=== PATIENT | female | born 1945 | race Two or more races ===

== ENCOUNTER 2020-08-25 10:57 | Outpatient (CLI) | payer OTHER | END 2020-08-25 11:24 | disposition home or self-care (01) | LOC: RAD 10:57 → MRI 11:15 → RAD 11:24 | PROVIDERS: ATTEND Orthopaedic Surgery | DX: M25.561 Pain in right knee (principal); M25.562 Pain in left knee; M25.551 Pain in right hip; M25.552 Pain in left hip; M19.09 Primary osteoarthritis, other specified site | CPT/HCPCS: 73718; 73721 ==

== ENCOUNTER 2020-09-27 11:40 | Emergency (ER) | payer OTHER ==
[~2020-09-27] VITALS: Ht 167.6 cm; Wt 57.6 kg
[2020-09-27] MEDS ORDERED: ALTACE5 MG (11:54)
== END 2020-09-27 13:57 | disposition home or self-care (01) ==
LOC: ER 11:40
DX: M25.561 Pain in right knee (principal)

== ENCOUNTER 2020-11-01 06:55 | Inpatient (IN) | payer OTHER ==
[~2020-11-01] VITALS: Ht 165.1 cm; Wt 54.4 kg
[~2020-11-01 06:55] MED LIST: ALTACE5 MG
[2020-11-01] MEDS ORDERED: SYNTHROID75 MCG PO (07:10)
--- NOTE | 2020-11-01 07:11 | NUR ---
SE RECIBE PTE EN EL TURNO ANTERIOR, EN AMBULANCIA ACOMPANADA DE PERSONAL PARAMEDICO. PACIENTE [facility]ERIDA [facility] POR CIRUGIA INFECTADA REALIZADA EL EN EL [facility] POR JUAN RAMON RINCONID RAMIREZ EN [place] DE [place] R+. SE UBICA A PTE EN AREA DE OBSERVACION PARA EVALUACION MEDICA.
--- NOTE | 2020-11-01 08:00 | NUR ---
SE EJECUTA ORDEN MEDICA EN DUBON TOTALIDAD Y PACIENTE QUEDA PENDIENTE DE RESULTADOS DE LABORATORIO. SE TOMANRON MEDIDAS ASEPTICAS Y SE ORIENTA A PACIENTE SOBRE LAS ORDENES MEDICAS.
[2020-11-03] MEDS ORDERED: SIMVASTATIN20 MG (08:05)
[2020-11-03] MEDS ORDERED: EZETIMIBE10 MG (08:05)
[2020-11-03] MEDS ORDERED: VITAMIN D350 MC3 (08:06)
[2020-11-03] MEDS ORDERED: CO Q-10400 MG (08:06)
[2020-11-03] MEDS ORDERED: NABUMETONE750 MG (08:06)
[2020-11-03] MEDS ORDERED: MONTELUKAST SOD10 MG (08:06)
[2020-11-04] MEDS ORDERED: LINEZOLID600 MG PO (11:39)
[2020-11-04] MEDS ORDERED: NABUMETONE750 MG PO (11:40)
== END 2020-11-04 13:28 | disposition home or self-care (01) | DRG 509 ==
LOC: ER 06:55 → SURG 10:00
PROVIDERS: ADMIT Orthopaedic Surgery; ATTEND Orthopaedic Surgery
PROC: 0SBC4ZX Excision of Right Knee Joint, Percutaneous Endoscopic Approach, Diagnostic (ICD-10-PCS; 2020-11-01)
PROC: 3E1U48X Irrigation of Joints using Irrigating Substance, Percutaneous Endoscopic Approach, Diagnostic (ICD-10-PCS; 2020-11-01)
PROC: 0SJC4ZZ Inspection of Right Knee Joint, Percutaneous Endoscopic Approach (ICD-10-PCS; principal; 2020-11-01 11:00)
DX: M17.11 Unilateral primary osteoarthritis, right knee (principal); I10 Essential (primary) hypertension; Z20.822 Contact with and (suspected) exposure to COVID-19

== ENCOUNTER 2020-12-24 11:05 | Outpatient (CLI) | payer OTHER ==
[~2020-12-24 11:05] MED LIST changes: +CO Q-10400 MG; +EZETIMIBE10 MG; +LINEZOLID600 MG PO; +MONTELUKAST SOD10 MG; +NABUMETONE750 MG; +NABUMETONE750 MG PO; +SIMVASTATIN20 MG; +SYNTHROID75 MCG PO; +VITAMIN D350 MC3
== END 2020-12-24 11:14 | disposition home or self-care (01) ==
LOC: RAD 11:05
PROVIDERS: ATTEND Orthopaedic Surgery
DX: M17.12 Unilateral primary osteoarthritis, left knee (principal); M25.561 Pain in right knee; M25.562 Pain in left knee

== ENCOUNTER → 2021-03-11 09:50 | Outpatient (CLI) | payer OTHER ==
[~2021-03-11 09:50] MED LIST changes: +ALTACE5 MG PO; +CALTRATE; +CLONAZEPAM0.5 MG PO; +DICLOFENAC EPO1 EACH; +DICLOFENAC SOD100 G1; +DUI500 PO; +ELIQUIS2.5 MG PO; +METHOCARBAMOL750 MG; +NAPROXEN; +NAPROXEN500 MG; +OXYC1TAB9; +PERCOCET 5-3251 EACH PO; +TYLENOL325 MG PO; +VITAMIN C100 MG PO; +VITAMIN D310 MC4; +VITAMIN D350 MCG
== END | disposition home or self-care (01) ==
LOC: LAB 09:50
PROVIDERS: ATTEND Orthopaedic Surgery
DX: M17.11 Unilateral primary osteoarthritis, right knee (principal)

== ENCOUNTER 2021-03-11 10:56 | Outpatient (CLI) | payer OTHER ==
[~2021-03-11 10:56] MED LIST changes: -ALTACE5 MG PO; -CALTRATE; -CLONAZEPAM0.5 MG PO; -DICLOFENAC EPO1 EACH; -DICLOFENAC SOD100 G1; -DUI500 PO; -ELIQUIS2.5 MG PO; -METHOCARBAMOL750 MG; -NAPROXEN; -NAPROXEN500 MG; -OXYC1TAB9; -PERCOCET 5-3251 EACH PO; -TYLENOL325 MG PO; -VITAMIN C100 MG PO; -VITAMIN D310 MC4; -VITAMIN D350 MCG
[2021-03-12] MEDS ORDERED: SYNTHROID75 MCG PO (11:01)
[2021-03-12] MEDS ORDERED: ALTACE5 MG PO (11:01)
[2021-03-12] MEDS ORDERED: CALTRATE (11:02)
[2021-03-12] MEDS ORDERED: VITAMIN D310 MC4 (11:02)
[2021-03-12] MEDS ORDERED: CLONAZEPAM0.5 MG PO (11:02)
[2021-03-12] MEDS ORDERED: NAPROXEN (11:03)
[2021-03-12] MEDS ORDERED: TYLENOL325 MG PO (11:03)
[2021-03-12] MEDS ORDERED: VITAMIN C100 MG PO (11:03)
== END 2021-03-11 11:05 | disposition home or self-care (01) ==
LOC: RAD 10:56
PROVIDERS: ATTEND Internal Medicine Endocrinology, Diabetes & Metabolism
DX: R07.89 Other chest pain (principal); I11.0 Hypertensive heart disease with heart failure

== ENCOUNTER 2021-03-12 08:15 | Inpatient (IN) | payer OTHER ==
[~2021-03-12] VITALS: Ht 165.1 cm; Wt 54.4 kg
[2021-03-12] MEDS ORDERED: SYNTHROID75 MCG PO (11:01)
[2021-03-12] MEDS ORDERED: ALTACE5 MG PO (11:01)
[2021-03-12] MEDS ORDERED: CLONAZEPAM0.5 MG PO (11:02)
[2021-03-12] MEDS ORDERED: VITAMIN D310 MC4 (11:02)
[2021-03-12] MEDS ORDERED: CALTRATE (11:02)
[2021-03-12] MEDS ORDERED: TYLENOL325 MG PO (11:03)
[2021-03-12] MEDS ORDERED: VITAMIN C100 MG PO (11:03)
[2021-03-12] MEDS ORDERED: NAPROXEN (11:03)
[2021-03-17] MEDS ORDERED: SIMVASTATIN20 MG (07:54)
[2021-03-17] MEDS ORDERED: METHOCARBAMOL750 MG (07:54)
[2021-03-17] MEDS ORDERED: DICLOFENAC EPO1 EACH (07:54)
[2021-03-17] MEDS ORDERED: DICLOFENAC SOD100 G1 (07:54)
[2021-03-17] MEDS ORDERED: VITAMIN D350 MCG (07:54)
[2021-03-17] MEDS ORDERED: EZETIMIBE10 MG (07:54)
[2021-03-17] MEDS ORDERED: NAPROXEN500 MG (07:54)
[2021-03-17] MEDS ORDERED: MONTELUKAST SOD10 MG (07:55)
[2021-03-17] MEDS ORDERED: VITAMIN D350 MC3 (07:55)
[2021-03-17] MEDS ORDERED: OXYC1TAB9 (07:55)
[2021-03-19] MEDS ORDERED: ELIQUIS2.5 MG PO (15:59)
[2021-03-19] MEDS ORDERED: DUI500 PO (15:59)
[2021-03-19] MEDS ORDERED: PERCOCET 5-3251 EACH PO (15:59)
== END 2021-03-19 18:17 | DRG 470 ==
LOC: O/R 03-17 05:50 → SURH 03-17 05:50 → O/R 03-19 16:46 → SURH 03-19 16:49
PROVIDERS: ADMIT Orthopaedic Surgery; ATTEND Orthopaedic Surgery
PROC: 0SRC0J9 Replacement of Right Knee Joint with Synthetic Substitute, Cemented, Open Approach (ICD-10-PCS; principal; 2021-03-17 14:15)
DX: M17.11 Unilateral primary osteoarthritis, right knee (principal); M81.0 Age-related osteoporosis without current pathological fracture

== ENCOUNTER 2023-07-17 16:59 | Emergency (ER) | payer OTHER ==
[~2023-07-17] VITALS: Ht 157.5 cm; Wt 63.5 kg
[~2023-07-17 16:59] MED LIST changes: +ALTACE5 MG PO; +CALTRATE; +CLONAZEPAM0.5 MG PO; +DICLOFENAC EPO1 EACH; +DICLOFENAC SOD100 G1; +DUI500 PO; +ELIQUIS2.5 MG PO; +METHOCARBAMOL750 MG; +NAPROXEN; +NAPROXEN500 MG; +OXYC1TAB9; +PERCOCET 5-3251 EACH PO; +TYLENOL325 MG PO; +VITAMIN C100 MG PO; +VITAMIN D310 MC4; +VITAMIN D350 MCG
[2023-07-17] MEDS ORDERED: LEVOTHYROXINE25 MCG PO (17:49)
[2023-07-17] MEDS ORDERED: KETOROLAC TROMETHAMINE 60 MG VIAL IM ONE (19:15)
== END 2023-07-17 21:34 ==
LOC: ER 16:59
DX: S09.8XXA Other specified injuries of head, initial encounter (principal); W10.0XXA Fall (on)(from) escalator, initial encounter; Y93.89 Activity, other specified; Y92.89 Other specified places as the place of occurrence of the external cause
CPT/HCPCS: 70450; 72100; 96372; 99284; J1885

== ENCOUNTER 2024-08-30 06:19 | Emergency (ER) | payer OTHER ==
[~2024-08-30] VITALS: Ht 167.6 cm; Wt 54.4 kg
[~2024-08-30 06:19] MED LIST changes: +LEVOTHYROXINE25 MCG PO
[2024-08-30] MEDS ORDERED: SYNTHROID50 MCG PO (06:31)
[2024-08-30] MEDS ORDERED: ENALAPRIL MALEAT5 MG PO (06:31)
[2024-08-30] MEDS ORDERED: KETOROLAC TROMETHAMINE 60 MG VIAL IM ONE ×2 (08:43→08:45)
[2024-08-30] MEDS ORDERED: ANKLE BRACE1 EACH MC (11:31)
[2024-08-30] MEDS ORDERED: KETO10TA2 PO (11:31)
== END 2024-08-30 12:50 | disposition home or self-care (01) ==
LOC: ER 06:19
DX: S90.01XA Contusion of right ankle, initial encounter (principal); W18.39XA Other fall on same level, initial encounter; Y93.89 Activity, other specified; Y92.89 Other specified places as the place of occurrence of the external cause; E03.8 Other specified hypothyroidism; I10 Essential (primary) hypertension; M77.31 Calcaneal spur, right foot
CPT/HCPCS: 73610; 73630; 96372; 99283; J1885